=== PATIENT | male | born 1985 | race Two or more races ===

== ENCOUNTER 2024-09-24 02:32 | Emergency (ER) | payer BC, OTHER ==
[~2024-09-24] VITALS: Ht 177.8 cm; Wt 100.0 kg
[2024-09-24] MEDS: HYDROcodone-ACET 10/325MG TAB PO ONE (04:10)
[2024-09-24 05:32] VITALS: BP 106/64; PULSE 97; RESP 18; TEMP 99; O2SAT 93
== END 2024-09-24 05:52 | disposition home or self-care (01) ==
LOC: ER 02:32
DX: S42.301A Unspecified fracture of shaft of humerus, right arm, initial encounter for closed fracture (principal); V89.2XXA Person injured in unspecified motor-vehicle accident, traffic, initial encounter; Y93.89 Activity, other specified; Y92.89 Other specified places as the place of occurrence of the external cause; Y99.8 Other external cause status
CPT/HCPCS: 70450; 71046; 73060; 73090